=== PATIENT | male | born 1990 | race Caucasian/White ===

== ENCOUNTER 2024-01-05 11:12 | Emergency (ER) | payer OTHER, SELFPAY ==
[2024-01-05] VITALS (7 sets, daily range): BP systolic 99–128; BP diastolic 52–96
[2024-01-05 11:59] LABS: % Eosinophils 3.6 % (0-6); % Immature Granulocytes 0.2 % (0-0.5); % Lymphocytes 28.2 % (20.5-51.1); % Monocytes 8.9 % (1.7-9.3); % Neutrophils 58.1 % (42.2-75.2); Absolute Basophils 0.1 10^3/uL (0-0.2); Absolute Eosinophils 0.2 10^3/uL (0-0.7); Absolute Lymphocytes 1.7 10^3/uL (1.2-3.4); Absolute Monocytes 0.5 10^3/uL (0.1-0.6); Absolute Neutrophils 3.5 10^3/uL (1.4-6.5); Hemoglobin 14.9 g/dL (13.0-18.0); Mean Corp Hgb Conc. 35.5 g/dL (33.0-37.0); Mean Corpuscular Hgb 30.5 pg (27.0-31.0); Mean Corpuscular Volume 85.9 fL (80.0-94.0); Mean Platelet Volume 10.4 fL (7.4-10.4); Nucleated Red Blood Cells % 0 % (-); Platelet Count 257 10^3/uL (130-400); Red Blood Cell Count 4.89 10^6/uL (4.70-6.10); Red Cell Dist. Width 11.8 % (11.5-14.5); White Blood Cell Count 6.1 10^3/uL (4.8-10.8)
--- NOTE | 2024-01-05 11:59 | ED.GENMED ---
History of Present Illness
<Kristin Guzman PA-C - Last Filed: 01/05/24 17:57>
General
Chief Complaint: Chest Pain
Source: patient
Exam Limitations: none
Time Seen by Provider: 01/05/24 11:26
Nursing documentation reviewed up to this point in time: agreed with
History of Present Illness
History of Present Illness:
Patient is a 33-year-old male presenting to the emergency department for evaluation of left-sided chest pain. Symptoms started yesterday morning when he woke up and he describes it as a pressure type pain in his left chest with some radiation to
his left shoulder. Patient does report notable worsening with deep breath and feel that he is been taking shallow breaths due to discomfort. No true exertional component to symptoms. No associated nausea, vomiting, diaphoresis, lightheadedness,
dizziness.
Patient does note that he was coughing for 1 day a few days ago. He endorses feeling 'chilly 'over the past 2 days. No known fevers.
No known trauma or inciting injury. Patient denies any recent travel or recent surgeries. Patient is a current cigarette smoker. No history of blood clots or clotting disorders.
Review of Systems
<Kristin Guzman PA-C - Last Filed: 01/05/24 17:57>
Review of Systems
Allergies reviewed?: Yes
All Other Systems: ROS reviewed and negative except as documented in HPI and ROS
Phy Exam
<Kristin Guzman PA-C - Last Filed: 01/05/24 17:57>
Physical Exam
Physical Exam:
Vitals: Patient's vital signs are stable. Afebrile
General: Patient is well appearing, no acute distress. Nontoxic-appearing
Skin: Warm and dry, no rashes or lesions
Head: Normocephalic, atraumatic
Eyes: Sclera nonicteric. EOMs intact. No nystagmus.
Throat: Protecting airway
Neck: Normal ROM, no cervical spine tenderness, no meningismus. No JVD
Cardiac: Regular rate and rhythm, no murmurs. Left anterior chest wall with mild reproducible tenderness. No crepitus or flail chest.
Pulm: Normal respiratory effort, no wheezes, rales, rhonchi heard on exam.
Abdomen: No abdominal tenderness.
Extremities: No evidence of cyanosis or edema. Negative Homans' sign bilaterally. No erythema, edema bilateral lower extremities
Neuro: Grossly intact
Psychiatric: Normal affect.
Scores
<Kristin Guzman PA-C - Last Filed: 01/05/24 17:57>
Heart Score for Chest Pain Patients
STEMI patient?: No
History: Slightly or Non-Suspicious
ECG: Normal
Age: </= 45 years
Risk Factors: 1 or 2 Risk Factors
Troponin: </= Normal Limit
Heart Score for Chest Pain Patients: 1
Heart Score Risk: 2.5% MACE over next 6 weeks
Course
<Kristin Guzman PA-C - Last Filed: 01/05/24 17:57>
Orders/Labs/Results
Orders:
Orders
01/05/24 11:12
ECG [Electrocardiogram (*1)] Urgent
Reason for Study: Chest Pain
EKG- Treatment ONCE
01/05/24 11:50
Complete Blood Count/With Diff Urgent
Comprehensive Metabolic Panel Urgent
Troponin I Urgent
01/05/24 11:58
Ketorolac [Toradol] 15 mg IV NOW STA
01/05/24 12:05
D-Dimer Urgent
01/05/24 12:40
CR Chest - 2 Views Urgent
Comment:
Reason For Exam: left sided chest pain
01/05/24 13:17
Mag Hydrox/Al Hydrox/Simeth [Maalox] 30 ml Phenobarb/Hyoscy/Atropine/Scop [] 10 ml Viscous Lidocaine 2% [Xylocaine Viscous Cup] 10 ml PO NOW
01/05/24 13:20
Mag Hydrox/Al Hydrox/Simeth [Maalox] 30 ml .ROUTE .STK-MED ONE
Phenobarb/Hyoscy/Atropine/Scop [] 10 ml .ROUTE .STK-MED ONE
Viscous Lidocaine 2% [Xylocaine Viscous Cup] 15 ml .ROUTE .STK-MED ONE
Abnormal Lab Results
01/05/24
11:50
Glucose 100 H mg/dl
(70-99)
01/05/24 11:50
01/05/24 11:50
Vital Signs
Initial and Last Documented VS:
Initial Vital Signs
Temp Pulse Resp BP Pulse Ox
97.4 F 67 18 128/81 98
01/05/24 11:23 01/05/24 11:23 01/05/24 11:23 01/05/24 11:23 01/05/24 11:23
Last Documented Vital Signs
Temp Pulse Resp BP Pulse Ox
97.4 F 45 16 103/52 97
01/05/24 11:23 01/05/24 14:30 01/05/24 14:30 01/05/24 14:12 01/05/24 14:30
<Susana Martines MD - Last Filed: 01/05/24 13:19>
Orders/Labs/Results
Orders:
Orders
01/05/24 11:12
ECG [Electrocardiogram (*1)] Urgent
Reason for Study: Chest Pain
EKG- Treatment ONCE
01/05/24 11:50
Complete Blood Count/With Diff Urgent
Comprehensive Metabolic Panel Urgent
Troponin I Urgent
01/05/24 11:58
Ketorolac [Toradol] 15 mg IV NOW STA
01/05/24 12:05
D-Dimer Urgent
01/05/24 12:40
CR Chest - 2 Views Urgent
Comment:
Reason For Exam: left sided chest pain
01/05/24 13:17
Mag Hydrox/Al Hydrox/Simeth [Maalox] 30 ml Phenobarb/Hyoscy/Atropine/Scop [] 10 ml Viscous Lidocaine 2% [Xylocaine Viscous Cup] 10 ml PO NOW
01/05/24 13:20
Mag Hydrox/Al Hydrox/Simeth [Maalox] 30 ml .ROUTE .STK-MED ONE
Phenobarb/Hyoscy/Atropine/Scop [] 10 ml .ROUTE .STK-MED ONE
Viscous Lidocaine 2% [Xylocaine Viscous Cup] 15 ml .ROUTE .STK-MED ONE
Abnormal Lab Results
01/05/24
11:50
Glucose 100 H mg/dl
(70-99)
01/05/24 11:50
01/05/24 11:50
Vital Signs
Initial and Last Documented VS:
Initial Vital Signs
Temp Pulse Resp BP Pulse Ox
97.4 F 67 18 128/81 98
01/05/24 11:23 01/05/24 11:23 01/05/24 11:23 01/05/24 11:23 01/05/24 11:23
Last Documented Vital Signs
Temp Pulse Resp BP Pulse Ox
97.4 F 45 16 103/52 97
01/05/24 11:23 01/05/24 14:30 01/05/24 14:30 01/05/24 14:12 01/05/24 14:30
<Kristin Guzman PA-C - Last Filed: 01/05/24 17:57>
MDM/Problems Addressed
Differential Diagnosis Includes:
Not limited to: Muscle strain, costochondritis, pericarditis, pneumothorax, pleurisy, pneumonia, pleural effusion, PE, etc.
MDM/Problems Addressed:
33-year-old male presenting with 24 hours of constant left-sided chest discomfort. There is some pleuritic component to pain although patient denies any true shortness of breath. No associated fevers or chills. Active cough. No exertional
component. No known inciting trauma or injury. Vital stable. Physical exam as above. Patient is well-appearing, conversational and nontoxic. Heart regular rate and rhythm. Lungs are clear bilaterally. He does have some mild reproducible
tenderness to left anterior chest wall without any obvious deformities or bruising. No overlying rash. No clinical evidence of DVT on exam. Differential broad at this time although includes possible muscle strain, costochondritis, pleurisy,
pericarditis, etc. low suspicion for infectious etiology given patient is afebrile with no history of cough, other infectious symptoms. Given patient is a cigarette smoker and endorses pleuritic component to the discomfort�will check D-dimer to
rule out PE. Basic labs including troponin initiated in triage and currently pending. Will give Toradol. Will closely monitor and reassess
Chronic conditions affecting care:
N/A
Acute Exacerbation and/or Progression of Chronic Illness:
N/A
<Kristin Guzman PA-C - Last Filed: 01/05/24 17:57>
*Pulse Oximetry
Patient hypoxic: no
*EKG
Interpreted by ED Provider?: Yes
EKG Intrepretation Date: 01/05/24
Interpretation: normal
Comparison EKG: no comparison EKG present
Heart Rate: 72
Rate: normal
Rhythm: sinus
[place]: right axis deviation
Interval: normal interval
QRS Pattern: normal QRS
Ischemia: no ischemia
*Senior Game Developer Interpretation
Rate: normal
Interpretation: normal
Heart Rate: 62
Rhythm: sinus
*Critical Care Note
Total Time (30-74mins, 75-104mins- exclusive of procedures): Not Applicable
<Kristin Guzman PA-C - Last Filed: 01/05/24 17:57>
Update Note
Update Note:
Update 12:50 PM: Labs reviewed. No clinically significant abnormalities. Troponin is normal and given pain has been constant for the past 24 hours feel this is sufficient to rule out acute CO. Fortunately�D-dimer is normal. Will proceed with
chest x-ray for further evaluation. Patient remained stable although denies any improvement in symptoms following Toradol.
Update: Chest x-ray shows no signs of acute cardio/pulmonary process. Did give patient GI cocktail to see if possible acid reflux component. Patient denies any improvement following this. Patient otherwise stable in no apparent distress. He has
remained hemodynamically stable. Work appears been negative. Do not suspect PE or other emergent process. I do suspect likely muscle strain, MSK etiology. Will instruct NSAIDs, rest. Will send patient to Protonix in case possible acid reflux
component given significant history of gastritis. Patient very stable in ER for discharge. Patient seen with attending physician. Patient will follow closely with primary care outpatient. Return precautions discussed.
ED Attending Note
<Kristin Guzman PA-C - Last Filed: 01/05/24 17:57>
-
Portions of this chart may have been created with voice recognition software.� Occasional wrong word or��sound alike� substitutions may have occurred due to the inherent limitations of voice recognition software.
<Susana Martines MD - Last Filed: 01/05/24 13:19>
ED Attending Note
Patient seen and examined by attending physician: Yes
I performed the substantive portion of visit, reviewed & personally made and approve the management plan that is documented in note by myself or CARLA.: Yes
ED Attending Note:
Patient is a 33-year-old man who reports constant left-sided chest pain since yesterday. Patient reports it is no worse when he takes a deep breath. He reports it might be slightly better today than yesterday. He denies shortness of breath.
Patient on exam looks completely comfortable. He is speaking in full sentences, smiling and conversational. Chest x-ray appears clear and normal. EKG appears nonischemic. It is doubtful he has a PE given that his pain for me is nonpleuritic and
his D-dimer is normal. Of consideration is musculoskeletal chest pain, however, he reports the Toradol was not that helpful. He does report a significant history of gastritis. For now, we will treat him with a GI cocktail and give him Protonix.
Patient will be instructed to follow-up with his primary care doctor.
Discharge Plan
Departure
Patient Disposition: Home (Routine Discharge)
Date of Disposition: 01/05/24
Time of Disposition: 14:16
Patient with high blood pressure during this ER visit?: No
Condition: Good
Covid-19: Not Applicable
Discharge Problem:
Anterior chest wall pain
Instructions: Costochondritis, Chest Pain
Prescriptions:
New
pantoprazole [Protonix] 40 mg tablet,delayed release (DR/EC)
40 mg PO DAILY Qty: 14 0RF
Referrals:
Derrick Hansen, DO [Family Provider] -
Activity Restrictions/Additional Instructions:
RETURN TO THE EMERGENCY DEPARTMENT WITH ANY FEVERS, CHILLS, WORSENING IN CHEST PAIN, ANY SHORTNESS OF BREATH, DIZZINESS/LIGHTHEADEDNESS, WORSENING IN CURRENT SYMPTOMS, OR ANY OTHER CONCERNS
-Your prescription has been sent to your pharmacy. You can take this daily with breakfast for the next 2 weeks.
-In addition�you can try Motrin and/or Tylenol at home as needed for discomfort. I would recommend take it easy over the next few days. Stay well-hydrated and get plenty rest
-Follow-up with your primary care in the next few days to ensure symptoms are improving/for further evaluation
Monitor your symptoms closely and return to the emergency department for any acute worsening/new symptoms
Interventions
Interventions:
*Risk Screen - Suicide Last Done: 01/05/24 11:23
*General Assessment Last Done: 01/05/24 11:23
*Neglect/Abuse Screening Last Done: 01/05/24 11:23
ED- Fall Risk Assessment Last Done: 01/05/24 14:37
*ED COVID-19 Vaccine History Last Done: 01/05/24 14:37
*Nursing Disposition Last Done: 01/05/24 14:37
ED- Cardiac Assessment Last Done: 01/05/24 11:52
Discharge Date and Time
Discharge Date/Time: 01/05/24 14:38
Print Language: FRISIAN
[2024-01-05] MEDS: TORADOL 15 MG IV (12:01)
[2024-01-05 12:14] LABS: ALT (SGPT) 15 U/L (0-50); AST (SGOT) 27 U/L (17-59); Albumin 4.7 g/dl (3.5-5.0); Alkaline Phosphatase 87 U/L (38-126); Blood Urea Nitrogen 18 mg/dl (9-20); Calcium 9.5 mg/dl (8.4-10.2); Carbon Dioxide 28 mmol/L (22-30); Chloride 104 mmol/L (98-107); Glucose 100 mg/dl (70-99); Potassium 4.6 mmol/L (3.5-5.1); Sodium 141 mmol/L (135-145); Total Bilirubin 0.8 mg/dl (0.2-1.3); Total Protein 6.9 g/dl (6.3-8.2); eGFR > 60.00
[2024-01-05 12:25] LABS: Troponin I < 0.012 ng/ml
[2024-01-05 12:29] LABS: D-Dimer < 0.27 ug/mlFEU (0.00-0.50)
[2024-01-05] MEDS: MAALOX 50 PO (13:24)
== END 2024-01-05 14:38 | disposition home or self-care (01) ==
LOC: EMR 11:12
PROVIDERS: Physician Assistant; EMERGENCY PHYSICIAN Emergency Medicine; FAMILY PHYSICIAN Internal Medicine
DX: R07.89 Other chest pain (principal); M25.512 Pain in left shoulder; R68.83 Chills (without fever); F41.9 Anxiety disorder, unspecified; K29.70 Gastritis, unspecified, without bleeding; F17.210 Nicotine dependence, cigarettes, uncomplicated
CPT/HCPCS: 99284; 96374; 71046; 80053; 84484; 85025; 85379; 93005

== ENCOUNTER 2024-08-03 11:37 | Emergency (ER) | payer SELFPAY ==
[2024-08-03 11:39] VITALS: BP 119/86
--- NOTE | 2024-08-03 12:01 | ED.GENMED ---
History of Present Illness
General
Chief Complaint: Alcohol Problem
Source: patient
Time Seen by Provider: 08/03/24 11:54
History of Present Illness
History of Present Illness:
33-year-old male presenting to the emergency department for evaluation of some abdominal discomfort he felt this morning after awakening noting that last night he had drank a large amount of whiskey in order to help him due to some
depression/sadness that he has been experiencing after he notes that his ex-girlfriend who he thought had been trying to get back with him notes that she was just messing around and not actively trying to back together. Patient states that this has
caused him some mental anguish over the last few weeks and he has had difficulty sleeping, last night resorted to trying to drink a larger quantity of whiskey in order to help him sleep. Patient notes that he normally does not drink on a regular
basis noting that he usually only has alcoholic beverages on holidays or special occasions. Patient has had passive suicidal thoughts but no specific plan or intent stating that he would never have the ability to take his own life. Patient's only
physical concern at this time is his abdomen feels 'gurgly' which she does attribute to the alcohol intake last night.
Past History
Past History
ED Past Medical History: Psychiatric
ED Past Surgical History: None
Social History
Tobacco: Smoker
Alcohol: Occasional
Drug: None
Personal: Single
Living: with family
Review of Systems
Review of Systems
All Other Systems: ROS reviewed and negative except as documented in HPI and ROS
Phy Exam
Physical Exam
Physical Exam:
GENERAL: Alert , in no apparent distress
EYE: conjunctiva clear
Head: Normocephalic atraumatic
NECK: Supple,
ENT: mmm.
LUNGS: no acute respiratory distress
NEUROLOGICAL: Alert and oriented
SKIN: Warm and dry, skin intact.
MUSCULOSKELETAL: well perfused.
PSYCH: Normal and appropriate interaction.
Scores
Heart Failure Risk
Heart Failure Risk Score: Not Applicable
Heart Score for Chest Pain Patients
STEMI patient?: Not applicable
Withdrawal Assessment of Alcohol
Withdrawal Assessment Completed?: Not applicable
Course
Orders/Labs/Results
Orders:
Orders
08/03/24 12:00
Crisis Consult Urgent
Reason for Consult: depression
observation [ED Special Safety Observation] ONCE
Observation level: One to Two
Vital Signs
Initial and Last Documented VS:
Initial Vital Signs
Temp Pulse Resp BP Pulse Ox
97.6 F 86 18 119/86 98
08/03/24 11:39 08/03/24 11:39 08/03/24 11:39 08/03/24 11:39 08/03/24 11:39
Last Documented Vital Signs
Temp Pulse Resp BP Pulse Ox
97.6 F 86 18 119/86 98
08/03/24 11:39 08/03/24 11:39 08/03/24 11:39 08/03/24 11:39 08/03/24 11:39
MDM/Problems Addressed
Differential Diagnosis Includes:
GI upset secondary to alcohol intake, adjustment disorder with depressed mood, patient expressed to me he has no suicidality with plan or intent
MDM/Problems Addressed:
33-year-old male presenting to the emergency department for evaluation of some depressive episodes over the last few weeks related due to social issue of relationship problems. Patient does note drinking larger quantity of alcohol last night,
awakening this morning with some mild GI, currently states he is not having any pain just a little bit of an upset stomach. Patient is in no acute distress, hemodynamically stable. Patient agreeable to crisis. Otherwise anticipate discharge home
and outpatient follow-up. Patient does decline [facility] as he notes he does not have an alcohol problem, he just wanted something to help him sleep better
Chronic conditions affecting care: Psychiatric illness (anxiety/depression)
*Pulse Oximetry
Patient hypoxic: no
*Critical Care Note
Total Time (30-74mins, 75-104mins- exclusive of procedures): Not Applicable
Patient Management
Escalation/DeEscalation of care consider admission/obs:
Patient seen and evaluated by crisis team. He declines any further treatment and wishes to be discharged home. Patient aware of return precautions to the ER.
ED Attending Note
-
Portions of this chart may have been created with voice recognition software.� Occasional wrong word or��sound alike� substitutions may have occurred due to the inherent limitations of voice recognition software.
Discharge Plan
Departure
Patient Disposition: Home (Routine Discharge)
Date of Disposition: 08/03/24
Time of Disposition: 12:44
Patient with high blood pressure during this ER visit?: No
Discharge Problem:
Acute adjustment disorder with depressed mood
Instructions: Alcohol Poisoning (DC)
Prescriptions:
No Action
pantoprazole [Protonix] 40 mg tablet,delayed release (DR/EC)
40 mg PO DAILY Qty: 14 0RF
Interventions
Interventions:
*Risk Screen - Suicide Last Done: 08/03/24 11:39
*General Assessment Last Done: 08/03/24 11:39
*Neglect/Abuse Screening Last Done: 08/03/24 11:39
*ED- Fall Risk Assessment Last Done: 08/03/24 13:00
*ED COVID-19 Vaccine History Last Done: 08/03/24 11:39
*Nursing Disposition Last Done: 08/03/24 13:00
ED- Neurological Assessment Last Done: 08/03/24 13:00
ED-Psychological Assessment Last Done: 08/03/24 13:00
Discharge Date and Time
Discharge Date/Time: 08/03/24 13:43
Print Language: [place]
== END 2024-08-03 13:43 | disposition home or self-care (01) ==
LOC: EMR 11:37
PROVIDERS: EMERGENCY PHYSICIAN Emergency Medicine; FAMILY PHYSICIAN Internal Medicine
DX: R45.851 Suicidal ideations (principal); F43.21 Adjustment disorder with depressed mood; Z65.8 Other specified problems related to psychosocial circumstances; K30 Functional dyspepsia; F32.A Depression, unspecified; F10.90 Alcohol use, unspecified, uncomplicated; F41.9 Anxiety disorder, unspecified; F17.200 Nicotine dependence, unspecified, uncomplicated
CPT/HCPCS: 99283